=== PATIENT | female | born 1945 | race African-American/Black ===

== ENCOUNTER 2022-08-30 13:49 | Outpatient (CLI) | payer MEDICARE, SELFPAY ==
--- NOTE | ~2022-08-30 | XR_ITS ---
XR foot RT standing 2V DATE: 08/30/2022 14:53 INDICATION: Osteoarthritis TECHNIQUE: Standing AP and lateral views COMPARISON: None FINDINGS: There is anterior and posterior tibial artery, dorsalis pedis artery and some metatarsal ar krystal calcifications, suggesting diabetes. Osteopenia. There is hallux valgus and bunion deformity. There is polyarticular osteoarthritis, including moderate osteopenia arthritis at the first metatarso phalangeal joint multiple interphalangeal joints. No fracture, dislocation, periosteal reaction or bone destruction. IMPRESSION: Osteopenia Hallux valgus and bunion deformity Polyarticular osteoarthritis Arterial calcifications suggestive of diabetes Reviewed, dictated and finalized at location L. RY DRILLER HELPER
--- NOTE | ~2022-08-30 | XR_ITS ---
XR knee LT 3V DATE: 08/30/2022 14:53 INDICATION: Osteoarthritis TECHNIQUE: [place] and standing AP and lateral views COMPARISON: None FINDINGS: There is extensive calcification of the femoral, popliteal and trifurcation arteries. There is osteopenia. There is mild superior pole patellar enthesopathy at the quadriceps tendon insertion. No fracture, dislocation or joint effusion. No periosteal reaction or bone destruction. The joint spa geovany are relatively well preserved. No radiopaque intra-articular loose body or chondrocalcinosis. IMPRESSION: Osteopenia Extensive arterial calcification Reviewed, dictated and finalized at location L. S AND BLOW MACHINE TENDER
--- NOTE | ~2022-08-30 | XR_ITS ---
XR foot LT standing 2V DATE: 08/30/2022 14:54 INDICATION: Osteoarthritis TECHNIQUE: Standing AP and lateral views COMPARISON: None FINDINGS: There is prominent anterior and posterior tibial artery and dorsalis pedis artery calcifica tion as well as some great toe digital arterial calcification, suggesting likelihood of diabetes. There is prominent hallux valgus and bunion deformity. There is moderate osteoarthritis at the first metatarsophalangeal joint and multiple interphalangeal joints. Mild osteophytic change at the tarsal and tarsometatarsal joints. There is osteopenia. Mild posterior calcaneal enthesopathy. No fracture, dislocation, periosteal reaction or bone destruction. IMPRESSION: Prominent hallux valgus and bunion deformity Polyarticular osteoarthritis, particularly at the first metatarsophalangeal and interphalangeal joint s, also mild involvement at the tarsal and tarsometatarsal joints. Mild posterior calcaneal enthesopathy Extensive arterial calcifications suggesting diabetes Reviewed, dictated and finalized at location L. RINARY PATHOLOGIST IMPRESSION: Prominent hallux valgus and bunion deformity Polyarticular osteoarthritis, particularly at the first metatarsophalangeal and interphalangeal joints, also mild involvement at the tarsal and tarsometatarsa l joints. Mild posterior calcaneal enthesopathy Extensive arterial calcifications suggesting diabetes
--- NOTE | ~2022-08-30 | XR_ITS ---
XR knee RT 3V DATE: 08/30/2022 14:53 INDICATION: Osteoarthritis TECHNIQUE: [place] and standing AP and lateral views COMPARISON: None FINDINGS: There is extensive calcification of the femoral, popliteal and trifurcation arteries. Osteopenia. No fracture or dislocation or joint effusion. No radiopaque intra-articular loose body or chondrocalc inosis. There is mild osteoarthritis at the medial compartment. No periosteal reaction or bone destruction. IMPRESSION: Osteopenia Mild osteoarthritis at medial compartment Extensive arterial calcifications Reviewed, dictated and finalized at location L. SITE WASTEWATER SYSTEMS TECHNICIAN
--- NOTE | ~2022-08-30 | XR_ITS ---
XR sacroiliac joints min 3V DATE: 08/30/2022 14:54 INDICATION: Osteoarthritis. Pain. TECHNIQUE: AP and bilateral oblique views of the sacroiliac joints COMPARISON: None FINDINGS: Calcified uterine fibroids are noted incidentally. There is prominent abdominal aortic and particularly prominent iliac and femoral arterial calcifications. There is degenerative change at the apophyseal joints at the included L3-4, L4-5 and L5 levels. No sp ondylolysis is noted. There is mild degenerative change at the sacroiliac joints. No erosive change or ankylosis. No fractu re or dislocation of the sacroiliac joints. Mild to moderate bilateral hip osteoarthritis. IMPRESSION: Osteophytic change at the sacroiliac and hip joints and included lower lumbar and lumbosa cral apophyseal joints Extensive arterial calcifications Calcified uterine fibroids Reviewed, dictated and finalized at Location A. Reviewed, dictated and finalized at location L. SE REFINER OPERATOR IMPRESSION: Osteophytic change at the sacroiliac and hip joints and included lo wer lumbar and lumbosacral apophyseal joints Extensive arterial calcifications Calcified uterine fibroids
--- NOTE | ~2022-08-30 | XR_ITS ---
XR hand BI arthritis min 3V DATE: 08/30/2022 14:53 INDICATION: Osteoarthritis TECHNIQUE: 4 views of each hand COMPARISON: None FINDINGS: There is osteopenia. No fracture, dislocation, periosteal reaction or bone destruction, erosive change or periostitis of e ither hand is noted. There is polyarticular osteoarthritis involving the triscaphe and particularly first carpometacarpal and multiple interphalangeal joints primarily, right greater than left. IMPRESSION: Polyarticular osteoarthritis Reviewed, dictated and finalized at location L. ANALYST
[2022-08-30 15:48] LABS: Complement C3 89 mg/dL (88-165)
[2022-08-30 15:49] LABS: Erythrocyte Sedimentation Rate 22 mm/hr (0-20)
[2022-08-30 15:50] LABS: Rheumatoid Factor 50.4 IU/ML (<12)
[2022-08-30 15:51] LABS: Alanine Aminotransferase 21 U/L (6-35); Albumin Level 4.9 g/dL (3.5-5.1); Alkaline Phosphatase 93 U/L (38-126); Anion Gap 15 mmol/L (8-16); Aspartate Amino Transferase 21 U/L (14-36); Bilirubin,Total 1.7 mg/dL (0.2-1.3); Blood Urea Nitrogen 37 mg/dL (7-17); CRP 0.7 mg/dL (<1.0); Calcium 9.5 mg/dL (8.4-10.2); Carbon Dioxide 32 mmol/L (22-30); Chloride 93 mmol/L (98-107); Creatine Kinase 48 U/L (30-135); Estimated Glomerular Filt Rate 7; Glucose 89 mg/dL (65-110); Lactate Dehydrogenase 131 U/L (120-246); Potassium 3.9 mmol/L (3.4-5.0); Sodium 140 mmol/L (137-145)
[2022-09-02 11:29] LABS: SM Antibody <1.0; SM/RNP Antibody <1.0; SS-A <1.0; SS-B <1.0
[2022-09-04 02:52] LABS: Aldolase 3.6 U/L (<=8.1)
[2022-09-04 21:10] LABS: Anti Cyclic Citrullinated Pept <16 Units (<20)
== END 2022-08-30 13:50 | disposition home or self-care (01) ==
PROVIDERS: PCP Internal Medicine; Visit Provider Internal Medicine
DX: M19.90 Unspecified osteoarthritis, unspecified site (principal); D25.9 Leiomyoma of uterus, unspecified; I73.9 Peripheral vascular disease, unspecified; M53.3 Sacrococcygeal disorders, not elsewhere classified; M19.041 Primary osteoarthritis, right hand; M19.042 Primary osteoarthritis, left hand; M85.861 Other specified disorders of bone density and structure, right lower leg; M17.11 Unilateral primary osteoarthritis, right knee; M85.862 Other specified disorders of bone density and structure, left lower leg; M20.11 Hallux valgus (acquired), right foot; M19.071 Primary osteoarthritis, right ankle and foot; M85.871 Other specified disorders of bone density and structure, right ankle and foot; M20.12 Hallux valgus (acquired), left foot; M19.072 Primary osteoarthritis, left ankle and foot; M85.872 Other specified disorders of bone density and structure, left ankle and foot
CPT/HCPCS: 36415; 72202; 73130; 73562; 73620; 80053; 82085; 82550; 83615; 84550; 85652; 86038; 86140; 86160; 86200; 86225; 86235; 86430